=== PATIENT | female | born 1970 | race African-American/Black ===

== ENCOUNTER 2019-08-10 09:09 | Emergency (ER) | payer MEDICAID ==
[~2019-08-10] VITALS: Ht 167.6 cm; Wt 59.0 kg
[2019-08-10] MEDS ORDERED: LEVETIRACETAM 1000MG/100ML 100 ML IV ONE (09:30)
[2019-08-10 09:53] LABS: BASOPHILS % 0.6 % (0.0-2.0); EOSINOPHILS % 0.7 % (0.0-5.0); HEMATOCRIT. 38.8 % (36.0-48.0); LYMPHOCYTES % 22.4 % (20.0-50.0); MEAN CORPUSCULAR HEMOGLOBIN 33.7 pg (28.0-32.0); MEAN CORPUSCULAR VOLUME 100.6 fL (81.0-99.0); MEAN PLATELET VOLUME 8.9 fl (7.4-10.4); MONOCYTES % 7.6 % (2.0-8.0); NEUTROPHILS % 68.7 % (40.0-76.0); PLATELET 202 x1000/uL (130-400); RED BLOOD CELL COUNT 3.85 mill/uL (4.2-5.4); RED CELL DISTRIBUTION WIDTH 14.6 % (11.6-14.6)
[2019-08-10 10:00] LABS: CHLORIDE 111 mEq/L (98-107)
[2019-08-10 10:15] LABS: ETHANOL BLOOD 347 mg/dL
[2019-08-10 10:19] LABS: CARBAMAZEPINE < 0.5 ug/mL (4-12); PHENOBARBITAL < 2.1 ug/mL (15.0-40.0)
[2019-08-10 14:36] VITALS: BP 115/70
== END 2019-08-10 15:53 | disposition left against medical advice (07) ==
LOC: ER 09:16 → EDBD 09:16 → ER 15:53
DX: G40.909 Epilepsy, unspecified, not intractable, without status epilepticus (principal); F10.129 Alcohol abuse with intoxication, unspecified; Y90.8 Blood alcohol level of 240 mg/100 ml or more; G31.9 Degenerative disease of nervous system, unspecified; Z86.73 Personal history of transient ischemic attack (TIA), and cerebral infarction without residual deficits
CPT/HCPCS: 36415; 70450; 80053; 80156; 80165; 80184; 80185; 80320; 82962; 85025; 96374; 99285; J1953; G0480